=== PATIENT | female | born 2000 | race Caucasian/White ===

== ENCOUNTER 2024-11-25 02:00 | Emergency (ER) | payer BC | END 2024-11-25 02:48 | disposition home or self-care (01) | LOC: FB.ED 02:00 | DX: R07.2 Precordial pain (principal); F41.1 Generalized anxiety disorder; Z91.013 Allergy to seafood; Z79.899 Other long term (current) drug therapy | CPT/HCPCS: 93005; 99284 ==

== ENCOUNTER 2025-02-05 15:20 | Emergency (ER) | payer OTHER, BC | END 2025-02-05 16:56 | disposition home or self-care (01) | LOC: FB.ED 15:20 | DX: S06.0X0A Concussion without loss of consciousness, initial encounter (principal); S70.12XA Contusion of left thigh, initial encounter; S50.12XA Contusion of left forearm, initial encounter; S80.12XA Contusion of left lower leg, initial encounter; Z88.0 Allergy status to penicillin; Z91.013 Allergy to seafood; Z79.899 Other long term (current) drug therapy; V86.06XA Driver of dirt bike or motor/cross bike injured in traffic accident, initial encounter; Y93.89 Activity, other specified | CPT/HCPCS: 70450; 70450-26; 72125; 72125-26; 73000-26-LT; 73000-LT; 99284 ==